=== PATIENT | male | born 1995 | race Caucasian/White ===

== ENCOUNTER 2017-09-06 22:14 | Emergency (ER) | payer MEDICAID ==
[~2017-09-06] VITALS: Ht 180.3 cm; Wt 97.5 kg
[2017-09-06 22:17] VITALS: BP 147/78
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
--- NOTE | 2017-09-06 22:55 | NUR ---
Buzz lucio in ED - 09/07/17 at 0115 by [facility] TO ER BED 4
[2017-09-06] MEDS ORDERED: NEOMYCIN/POLYMYXIN/BACITRACIN 0.9 GM/1 PKT TP ONE (23:00)
[2017-09-06] MEDS ORDERED: LIDOCAINE 1% ***ER ONLY *** 10 MG/ML VIAL INJ ONE (23:00)
--- NOTE | 2017-09-06 23:05 | NUR ---
JANETH LAWRENCE PERFORMING PROCEDURE AT BEDSIDE.
[2017-09-06] MEDS ORDERED: LIDOCAINE 1% ***ER ONLY *** 50 ML ONE (23:09)
[2017-09-07 00:30] VITALS: BP 147/78
--- NOTE | 2017-09-07 00:30 | NUR ---
Patient discharged BY DR HUGHES with v/s stable. Written and verbal after care instructions given and explained BY ER MD. Patient alert, oriented and verbalized understanding of instructions. Ambulatory with steady gait. All questions addressed prior to discharge. ID band removed. Patient advised to follow up with PMD OR RETURN TO ER IF CONDITION WORSENS. Rx of NAPROSYN given. Patient educated on indication of medication including possible reaction and side effects. Opportunity to ask questions provided and answered.
== END 2017-09-07 00:30 | disposition home or self-care (01) ==
LOC: MED 22:14
DX: S62.635A Displaced fracture of distal phalanx of left ring finger, initial encounter for closed fracture (principal); W22.8XXA Striking against or struck by other objects, initial encounter; Y93.89 Activity, other specified; Y92.69 Other specified industrial and construction area as the place of occurrence of the external cause; Y99.0 Civilian activity done for income or pay
CPT/HCPCS: 11730; 73140; 90471; 90715; 99284; J2001